=== PATIENT | male | born 1950 | race Caucasian/White ===

== ENCOUNTER 2017-04-15 17:18 | Emergency (ER) | payer BC ==
[~2017-04-15] VITALS: Ht 189.2 cm; Wt 110.0 kg
[~2017-04-15 17:18] MED LIST: ALLOPURINOL300 MG; AVAPRO300 MG; COREG25 MG; FISH OIL 1,0001 CA1; [UNRECOGNIZED DRUG - OTHER]
[2017-04-15] MEDS ORDERED: ZYLOPRIM100 M1 PO (17:34)
[2017-04-15] MEDS ORDERED: NORTRIPTYLINE H25 M1 PO (17:35)
[2017-04-15] MEDS ORDERED: NEURONTIN300 M1 PO (17:35)
[2017-04-15] MEDS ORDERED: VITAMIN D31000 UNI3 PO (17:35)
[2017-04-15] MEDS ORDERED: COREG25 M1 PO (17:35)
[2017-04-15] MEDS ORDERED: VASCEPA1 GM PO (17:35)
[2017-04-15] MEDS ORDERED: [UNRECOGNIZED DRUG - OTHER] (17:36)
[2017-04-15] MEDS ORDERED: JOINT HEALTH T1 EACH PO (17:36)
[2017-04-15] MEDS ORDERED: CENTRUM SILVER1 EAC7 PO (17:36)
[2017-04-15 17:47] LABS: URINE APPEARANCE CLOUDY; URINE BILIRUBIN SMALL (NEG); URINE BLOOD LARGE (NEG); URINE COLOR RED; URINE GLUCOSE (UA) NEGATIVE (NEG); URINE KETONE NEGATIVE (NEG); URINE LEUKOCYTE ESTERASE POSITIVE (NEG); URINE NITRITE POSITIVE (NEG); URINE PROTEIN LARGE (NEG)
[2017-04-15 17:51] LABS: URINE RBC FULL FIELD /[HPF] (0-5)
[2017-04-15 17:52] LABS: URINE EPITHELIAL CELLS 0 /[HPF] (0-10); URINE WBC 0-3 /[HPF] (0-5)
[2017-04-15 18:36] LABS: BASO % 0.9 % (0-2); BASO ABSOLUTE COUNT 0.1 tho/cmm (0.0-0.2); EOS % 1.2 % (0-7); EOSINOPHIL ABSOLUTE COUNT 0.1 tho/cmm (0.0-0.7); HGB-HEMOGLOBIN 13.6 gm/dl (13.5-17.0); IMMATURE GRANULOCYTES ABSOLUTE 0.01 tho/cmm (0-0.03); IMMATURE GRANULOCYTES PERCENT 0.2 % (0-0.3); LYMPH % 32.4 % (20-45); LYMPH ABSOLUTE COUNT 2.2 tho/cmm (0.8-4.5); MCH (MEAN CORPUSCULAR HGB) 31.6 pg (28.0-32.0); MCHC MEAN CORPUSCULAR HGB CONC 35.8 % (32.0-36.0); MCV (MEAN CELL VOLUME) 88.4 fl (82.0-96.0); MONO % 8.9 % (0-12); MONOCYTE ABSOLUTE COUNT 0.6 tho/cmm (0.0-1.2); NEUTROPHIL ABSOLUTE COUNT 3.8 tho/cmm (1.6-8.0); NEUTROPHIL-AUTOMATED 3.8 tho/cmm (1.6-8.0); NEUTROPHILS % 56.4 % (40-80); PLATELET COUNT 282 tho/cmm (150-450); RED CELL DISTRIBUTION WIDTH 13.8 % (12.4-16.4); WHITE BLOOD COUNT 6.6 tho/cmm (4.0-10.0)
[2017-04-15 18:48] LABS: ANION GAP 8 mmol/L (0-20); BLOOD UREA NITROGEN 20 mg/dl (6-24); CALCIUM 9.2 mg/dl (8.5-10.5); CARBON DIOXIDE-VENOUS 29 mmol/L (22-32); CHLORIDE 106 mmol/l (96-110); CREATININE 1.27 mg/dl (0.60-1.30); GLUCOSE 109 mg/dL (70-110); POTASSIUM 3.9 mmol/L (3.7-5.1); SODIUM 139 mmol/L (135-145); eGFR VALUE FOR BLACK 68 mL/Min
[2017-04-15] MEDS ORDERED: NORCO 5-325 TA1 EACH PO (19:27)
[2017-04-15] MEDS ORDERED: ZOFRAN4 M2 PO (19:27)
== END 2017-04-15 19:35 ==
LOC: EDMED 17:18
PROVIDERS: Emergency Medicine
DX: N20.1 Calculus of ureter (principal); M10.9 Gout, unspecified; Z90.89 Acquired absence of other organs; Z88.6 Allergy status to analgesic agent; Z88.1 Allergy status to other antibiotic agents